=== PATIENT | female | born 1955 | race Caucasian/White ===

== ENCOUNTER → 2017-07-25 | Outpatient (CLI) | payer BC ==
[~2017-07-25] MED LIST: IOPAMIDOL 370 MG/ML 200 ML INFUS..BTL INJ ONE; SODIUM CHLORIDE 0.9% 50ML 50 ML ONE
[2017-07-25 10:43] LABS: BLOOD UREA NITROGEN 11 mg/dL (7-26); BUN/CREATININE RATIO 15 (6-25); CREATININE, SERUM 0.75 mg/dL (0.57-1.11); EST GLOMERULAR FILTRATION RATE > 60 ML/MIN (60-)
--- NOTE | 2017-07-25 12:26 | Diagnostic Imaging Report ---
PROCEDURE: CT scan of the chest WITH intravenous contrast, using PE protocol. TECHNIQUE: The chest was scanned utilizing a multidetector helical scanner from the lung apex through the level of the adrenal glands after the IV administration of 70 cc of Isovue 370. Coronal and sagittal multiplanar reformations were obtained. DLP: 522.99 mGy-cm COMPARISON: None. INDICATIONS: PULMONARY EMBOLISM FINDINGS: Lines/tubes: None. Lungs and Airways: No filling defects within the pulmonary arteries to the segmental level. Few scattered pulmonary nodules, including (on series 3): * Right middle lobe 0.8 cm nodule (image 58) * Right lower lobe 0.2 cm nodule (image 61) * Left upper lobe 0.2 cm nodule (image 25) No focal consolidations. Central airways are clear. Pleura: The pleural spaces are clear. Heart and mediastinum: The thyroid gland is normal. No significant mediastinal, hilar or axillary lymphadenopathy is seen. The heart and pericardium are within normal limits. Main pulmonary artery measures 2.3 cm and ascending aorta measures 3.3 cm in diameter, within normal limits. Mitral or calcifications. Scattered aortic calcifications. Soft tissues: Normal. Abdomen: Limited contrast-enhanced views of the upper abdomen show no abnormality within the visualized liver, spleen, pancreas, or kidneys. The adrenal glands are normal. Bones: Degenerative changes of the spine. IMPRESSION: 1. No evidence of pulmonary embolism. 2. Few pulmonary nodules measure up to 0.8 cm. Recommend followup chest CT without contrast in 6-12 months according to Fleischner Society 2017 guidelines. Dictated by: Jarocho Springer M.D. on 07/25/2017 at 12:35 Electronically approved by: Jarocho Springer M.D. on 07/25/2017 at 12:35
== END ==
LOC: CT 09:03
PROVIDERS: ATTEND Internal Medicine Interventional Cardiology
DX: R07.9 Chest pain, unspecified (principal); I26.99 Other pulmonary embolism without acute cor pulmonale
CPT/HCPCS: 36415; 71260; 82565; 84520; Q9967

== ENCOUNTER → 2018-01-21 | Outpatient (CLI) | payer BC ==
--- NOTE | 2018-01-21 09:10 | Diagnostic Imaging Report ---
PROCEDURE: CT CHEST WITHOUT CONTRAST CT scan of the chest WITHOUT intravenous contrast, using standard protocol. TECHNIQUE: The chest was scanned utilizing a multidetector helical scanner from the apex to the level of the adrenal glands. No IV contrast was administered because of nodule protocol. Coronal and sagittal multiplanar reformations were obtained. COMPARISON: 07/25/2017. INDICATIONS: PULMONARY NODULES FINDINGS: Lines/tubes: None. Lungs and Airways: Nodules as follows: Right middle lobe: Stable, 0.8 cm, series 3 image 61 (Previously 0.8 cm) Right lower lobe: Not visualized on the current examination, possibly related to slice selection. (Previously 0.2 cm) Superior segment left lower lobe: Stable, 0.2 cm, series 3 image 24 (Previously 0.2 cm) No new pulmonary nodules. No consolidations. Trachea, mainstem bronchi, and central lobar and segmental bronchi are patent. Pleura: The pleural spaces are clear. Heart and mediastinum: Visualized portions of the thyroid gland appear normal. Atherosclerotic calcification of the aortic arch, great vessel origins, and coronary arteries. No ectasia or aneurysmal dilatation of the thoracic aorta. No axillary, hilar, or mediastinal lymphadenopathy. No pericardial effusion. Soft tissues: No focal soft tissue abnormalities. Abdomen: Visualized portions of the liver, gallbladder, spleen, pancreas, and adrenals are unremarkable. Bones: Multilevel degenerative disc changes of the thoracic spine. No osseous destructive lesions. IMPRESSION: Stable bilateral pulmonary nodules measuring up to 0.8 cm. An additional one year followup CT scan of the chest without contrast is suggested to assess for continued stability per Fleischner society 2017 guidelines. Dictated by: Kang Whiting M.D. on 01/21/2018 at 8:29 Electronically approved by: Kang Whiting M.D. on 01/21/2018 at 8:29
== END ==
LOC: CT 07:35
PROVIDERS: ATTEND Internal Medicine Interventional Cardiology
DX: R91.8 Other nonspecific abnormal finding of lung field (principal)
CPT/HCPCS: 71250

== ENCOUNTER → 2018-12-25 | Day surgery (SDC) | payer BC ==
[2018-12-22 17:20] LABS: BASOPHILS # (AUTO) 0.1 (0.0-0.1); BASOPHILS % 0.6 % (0.0-1.0); EOSINOPHILS # (AUTO) 0.2 (0.0-0.4); EOSINOPHILS % 1.9 % (0.0-6.0); HEMATOCRIT 35.8 % (34.2-44.1); HEMOGLOBIN 11.8 g/dL (12.0-16.0); LYMPHOCYTES # (AUTO) 3.8 (1.0-3.2); LYMPHOCYTES % 40.8 % (18.0-39.1); MEAN CORPUSCULAR HEMOGLOBIN 32.5 pg (28-32); MEAN CORPUSCULAR VOLUME 98.6 fL (81-99); MONOCYTES # (AUTO) 1.1 (0.2-0.8); MONOCYTES % 11.7 % (4.4-11.3); NEUTROPHILS # (AUTO) 4.2 (2.1-6.9); NEUTROPHILS % 44.7 % (38.7-80.0); PLATELET COUNT 306 x10e3/uL (140-360); RED BLOOD COUNT 3.63 x10e6/uL (3.6-5.1); RED CELL DISTRIBUTION WIDTH 12.3 % (11.7-14.4)
[~2018-12-25] MED LIST changes: +CRESTOR10 MG PO; +FENTANYL CITRATE/PF 100MCG/2 ML INJ ONE; +GLUCAGON FOR INJ 1 MG VIAL ONE; +HYOSCYAMINE 0.125 MG TAB ONE; -IOPAMIDOL 370 MG/ML 200 ML INFUS..BTL INJ ONE; +LIDOCAINE HCL 2% LOCAL INJ 5 ML SDV VIAL INJ ONE; +LISINOPRIL10 MG PO; +METFORMIN HCL500 MG PO; +MIDAZOLAM HCL 2 MG/2 ML VIAL ONE; +PROPOFOL IV EMULSION 10 MG/ML 20 ML VIAL ONE; -SODIUM CHLORIDE 0.9% 50ML 50 ML ONE; +TETRACYCLINE H250 MG PO
--- OUTSIDE RECORDS SUMMARY | 2018-12-25 10:28 | XMS REPORT ---
[facility] Address Unknown Phone Unavailable Care Team Providers [facility] Name Role Phone DREW MCCARTY Unavailable Unavailable Problems This patient has no known problems. Allergies, Adverse Reactions, Alerts This patient has no known allergies or adverse reactions. Medications This patient has no known medications. Results Test Description Test Time Test Comments Text Results Atomic Results Result Comments CT CHEST WO 2018-01-21 08:29:00 [facility] [address] [address] Patient Name: TAMIKO SALMON MR #: [id number] : 1955 Age/Sex: 62/F Req #: [id number] Adm Physician: Ordered by: DREW MCCARTY MD Report #: [id number] Location: CT Room/Bed: Procedure: [id number] CT/CT CHEST WO Exam Date: 01/21/18 Exam Time: 0950 REPORT STATUS: Signed PROCEDURE: CT CHEST WITHOUT CONTRAST CT scan of the chest WITHOUT intravenous contrast, using standard protocol. TECHNIQUE: The chest was scanned utilizing a multidetector helical scanner from the apex to the level of the adrenal glands. No IV contrast was administered because of nodule protocol. Coronal and sagittal multiplanar reformations were obtained. COMPARISON: 07/25/2017. INDICATIONS: PULMONARY NODULES FINDINGS: Lines/tubes: None. Lungs and Airways: Nodules as follows: Right middle lobe: Stable, 0.8 cm, series 3 image 61 (Previously 0.8 cm) Right lower lobe: Not visualized on the current examination, possibly related to slice selection. (Previously 0.2 cm) Superior segment left lower lobe: Stable, 0.2 cm, series 3 image 24 (Previously 0.2 cm) No new pulmonary nodules. No consolidations. Trachea, mainstem bronchi, and central lobar and segmental bronchi are patent. Pleura: The pleural spaces are clear. Heart and mediastinum: Visualized portions of the thyroid gland appear normal. Atherosclerotic calcification of the aortic arch, great vessel origins, and coronary arteries. No ectasia or aneurysmal dilatation of the thoracic aorta. No axillary, hilar, or mediastinal lymphadenopathy. No pericardial effusion. Soft tissues: No focal soft tissue abnormalities. Abdomen: Visualized portions of the liver, gallbladder, spleen, pancreas, and adrenals are unremarkable. Bones: Multilevel degenerative disc changes of the thoracic spine. No osseous destructive lesions. IMPRESSION: Stable bilateral pulmonary nodules measuring up to 0.8 cm. An additional one year followup CT scan of the chest without contrast is suggested to assess for continued stability per Fleischner society 2017 guidelines. Dictated by: Erika White M.D. on 01/21/2018 at 8:29 Electronically approved by: Erika White M.D. on 01/21/2018 at 8:29 Dictated By: ERIKA WHITE MD 8 Transcribed By: JANI on 01/21/18828 COPY TO: DREW MCCARTY MD CT CHEST [address] [place] [address] Patient Name: TAMIKO SALMON MR #: [id number] : 1955 Age/Sex: 62/F Req #: [id number] Adm Physician: Ordered by: DREW MCCARTY MD Report #: [id number] Location: CT Room/Bed: Procedure: [id number] CT/CT CHEST W Exam Date: 07/25/17 Exam Time: 1045 REPORT STATUS: Signed PROCEDURE: CT scan of the chest WITH intravenous contrast, using PE protocol. TECHNIQUE: The chest was scanned utilizing a multidetector helical scanner from the lung apex through the level of the adrenal glands after the IV administration of 70 cc of Isovue 370. Coronal and sagittal multiplanar reformations were obtained. DLP: 522.99 mGy-cm COMPARISON: None. INDICATIONS: PULMONARY EMBOLISM FINDINGS: Lines/tubes: None. Lungs and Airways: No filling defects within the pulmonary arteries to the segmental level. Few scattered pulmonary nodules, including (on series 3): * Right middle lobe 0.8 cm nodule (image 58) * Right lower lobe 0.2 cm nodule (image 61) * Left upper lobe 0.2 cm nodule (image 25) No focal consolidations. Central airways are clear. Pleura: The pleural spaces are clear. Heart and mediastinum: The thyroid gland is normal. No significant mediastinal, hilar or axillary lymphadenopathy is seen. The heart and pericardium are within normal limits. Main pulmonary artery measures 2.3 cm and ascending aorta measures 3.3 cm in diameter, within normal limits. Mitral or calcifications. Scattered aortic calcifications. Soft tissues: N ormal. Abdomen: Limited contrast-enhanced views of the upper abdomen show no abnormality within the visualized liver, spleen, pancreas, or kidneys. The adrenal glands are normal. Bones: Degenerative changes of the spine. IMPRESSION: 1. No evidence of pulmonary embolism. 2. Few pulmonary nodules measure up to 0.8 cm. Recommend followup chest CT without contrast in 6-12 months according to Fleischner Society 2017 guidelines. Dictated by: Jarocho Adkins M.D. on 07/25/2017 at 12:35 Electronically approved by: Jarocho Adkins M.D. on 07/25/2017 at 12:35 Dictated By: JAROCHO ADKINS MD [id number] Transcribed By: JANI on 07/25/17 1235 COPY TO: DREW MCCARTY MD
--- NOTE | 2018-12-25 15:32 | Operative Report ---
DATE OF PROCEDURE: 12/25/2018 SURGEON: Arvin Golden MD PROCEDURE: Colonoscopy and polypectomy. INDICATIONS FOR COLONOSCOPY: Surveillance colonoscopy, personal history of colon polyps. MEDICATIONS: The patient was done under MAC, please see anesthesiologist's note. PROCEDURE IN DETAIL: With the patient in left lateral decubitus position, flexible fiberoptic Olympus colonoscope was inserted into the rectum with ease and advanced all the way to the cecum. It was then withdrawn slowly. Mucosa overlying the cecum, ascending colon, transverse colon grossly appeared to be within normal limits. One polyp was snared from the descending colon. Two polyps were snared from the sigmoid. One polyp was hot biopsied from the sigmoid. The rectum appeared to be within normal limits. The scope was then retroflexed into the distal rectum and small internal hemorrhoids were noted, none of which was actively bleeding. The scope was then straightened out, it was subsequently withdrawn. The patient tolerated the procedure well. IMPRESSION: 1. Descending colon polyp, snared. 2. Sigmoid colon polyps x3, two snared and one hot biopsied. 3. Internal hemorrhoids, none actively bleeding. PLAN: Follow up histology. Initiate high-fiber, low-fat diet. Initiate high-fiber supplement. The patient might benefit from a followup colonoscopy in 3 years. Arvin Golden MD [facility] [place] /[id number] cc: Pablito Tomlinson DO
[2018-12-25 15:35] VITALS: BP 144/85
== END | disposition home or self-care (01) ==
LOC: OR 10:23
PROVIDERS: ATTEND Internal Medicine Gastroenterology
DX: Z09 Encounter for follow-up examination after completed treatment for conditions other than malignant neoplasm (principal); K63.5 Polyp of colon; K64.8 Other hemorrhoids; E11.9 Type 2 diabetes mellitus without complications; I10 Essential (primary) hypertension; Z88.0 Allergy status to penicillin; Z01.810 Encounter for preprocedural cardiovascular examination; Z01.812 Encounter for preprocedural laboratory examination; Z79.84 Long term (current) use of oral hypoglycemic drugs; Z68.35 Body mass index [BMI] 35.0-35.9, adult
CPT/HCPCS: 36415 ×2; 45384; 45385; 82948; 85025; 93005; J1610; J2001; J2250; J2704; 45378; J3010